=== PATIENT | male | born 1995 | race African-American/Black ===

== ENCOUNTER 2017-09-28 12:27 | Emergency (ER) | payer OTHER ==
[2017-09-28] MEDS: NAPROXEN 500 MG TABLET PO (13:54)
== END 2017-09-28 14:44 | disposition home or self-care (01) ==
LOC: ER 14:44
DX: S13.4XXA Sprain of ligaments of cervical spine, initial encounter (principal); M54.5 Low back pain; M54.6 Pain in thoracic spine; V43.52XA Car driver injured in collision with other type car in traffic accident, initial encounter; Y93.I9 Activity, other involving external motion; Y92.410 Unspecified street and highway as the place of occurrence of the external cause; Y99.8 Other external cause status
CPT/HCPCS: 72040; 72072; 72100; 99284

== ENCOUNTER 2018-04-22 17:13 | Emergency (ER) | payer SELFPAY ==
[~2018-04-22] VITALS: Ht 182.9 cm; Wt 68.0 kg
[~2018-04-22 17:13] MED LIST: CYCL10TA2 PO; NAPR500T8 PO
[2018-04-22 17:15] VITALS: BP 148/78
--- NOTE | 2018-04-22 17:38 | PHYS DOC ---
Past Medical History Past Medical History: No Pertinent History Past Surgical History: No Surgical History Alcohol Use: Occasionally Drug Use: Marijuana Adult General Chief Complaint Chief Complaint: SORE THROAT HPI HPI Patient is a 22 year old AA male who presents to the ER with complaints of a sore throat for the last week and a half. Pt states he has had a fever up to 100.4, cough, nasal congestion, and swollen lymphnodes in his neck. Pt denies any nausea, vomiting, diarrhea, or abdominal pain. He states that he feels like this anytime he has strep throat. Review of Systems Review of Systems Constitutional: Denies fever or chills [] Eyes: Denies change in visual acuity, redness, or eye pain [] HENT: See HPI Respiratory: Denies wheezing or shortness of breath; reports dry cough GI: Denies abdominal pain, nausea, vomiting, or diarrhea [] Musculoskeletal: Denies back pain or joint pain [] Integument: Denies rash or skin lesions [] Neurologic: Denies headache, focal weakness or sensory changes [] All other systems were reviewed and found to be within normal limits, except as documented in this note. Current Medications Current Medications Current Medications Medications (Trade) Dose Ordered Sig/Nawaf Start Time Stop Time Status Last Admin Dose Admin Penicillin G Benzathine (Bicillin L-A) 1,200,000 unit 1X ONCE 04/22/18 17:45 04/22/18 17:46 04/22/18 17:36 1,200,000 UNIT Allergies Allergies Allergies Coded Allergies Type Severity Reaction Last Updated Verified No Known Drug Allergies 09/28/17 No Physical Exam Physical Exam Constitutional: Well developed, well nourished, no acute distress, ill appearance. [] HENT: Normocephalic, atraumatic, bilateral external ears normal, bilateral TMs normal, posterior pharynx erythremic with 2+ tonsils bilat, oropharynx moist, no oral exudates, nose normal. [] Eyes: conjunctiva normal, no discharge. [] Neck: Normal range of motion, anterior cervical lymphnode enlargement and tenderness to palpation, no stridor. [] Cardiovascular:Heart rate regular rhythm, no murmur [] Lungs & Thorax: Bilateral breath sounds clear to auscultation [] Skin: Warm, dry, no erythema, no rash. [] Extremities: No cyanosis, no clubbing, ROM intact, no edema. [] Neurologic: Alert and oriented X 3, normal motor function, normal sensory function, no focal deficits noted. [] Psychologic: Affect normal, judgement normal, mood normal. [] Current Patient Data Vital Signs Vital Signs Date Time Temp Pulse Resp B/P (MAP) Pulse Ox O2 Delivery O2 Flow Rate FiO2 04/22/18 17:15 98.9 81 18 148/78 (101) 97 Room Air 98.9 EKG EKG [] Radiology/Procedures Radiology/Procedures rapid strep negative[] Course & Med Decision Making Course & Med Decision Making Pertinent Labs and Imaging studies reviewed. (See chart for details) Based off of physical exam findings and C[facility] criteria patient was treated with IM Bicillin. [] Dragon Disclaimer Dragon Disclaimer This electronic medical record was generated, in whole or in part, using a voice recognition dictation system. Departure Departure Impression: Primary Impression: Strep pharyngitis Disposition: 01 HOME, SELF-CARE Condition: STABLE Referrals: NO PCP (PCP) Patient Instructions: Strep Throat, [id number] Additional Instructions: Recommend warm salt water gargles as needed for relief of discomfort. Alternate Tylenol and ibuprofen as needed for fever/pain. Discard your toothbrush tomorrow and begin using a new toothbrush. Follow-up with primary care doctor if symptoms persist. Return to the ER if symptoms worsen. ELISEO PERES APRN Apr 22, 2018 17:38
[2018-04-22] MEDS ORDERED: PENICILLIN G BENZATHINE LA 1,200,000 UNIT/2 ML DISP.SYRIN. IM ONE (17:45)
== END 2018-04-22 17:52 | disposition home or self-care (01) ==
LOC: ER 17:13
DX: J02.0 Streptococcal pharyngitis (principal)
CPT/HCPCS: 87070; 87880; 96372; 99283; J0561